=== PATIENT | male | born 1985 | race African-American/Black ===

== ENCOUNTER → 2016-04-15 | Outpatient (REF) | payer OTHER ==
[2016-04-15 15:34] LABS: % NORMAL FORMS 9 % (>=4); IMMOTILITY 52 %; NON PROGRESSIVE MOTILITY (c) 11 %; PROGRESSIVE MOTILITY (a) 37 % (>=32); SPERM# 190.5 M/Ejac (33-46); TOTAL FUNCTIONAL 15.5 M/Ejac.; TOTAL MOTILITY 48 % (>=40); TOTAL PROGRESSIVE SPERM 71.3 M/Ejac.
== END ==
LOC: M LAB REF 15:10
PROVIDERS: ATTEND Physician Assistant
DX: Z30.8 Encounter for other contraceptive management (principal)